=== PATIENT | female | born 1965 | race American Indian/Alaskan Native ===

== ENCOUNTER 2021-04-18 13:21 | Outpatient (CLI) | payer MEDICARE ==
--- NOTE | 2021-04-18 16:51 | XRay Report ---
BILATERAL KNEE 6 VIEW(S) INDICATION / CLINICAL INFORMATION: KNEE PAIN COMPARISON: None available. FINDINGS: BONES / JOINT(S): No acute fracture or subluxation. Severe tricompartmental osteoarthrosis bilaterall y. Suspect is 7 mm intra-articular body within the anterior joint of the right knee, best appreciated on the lateral view. SOFT TISSUES: No significant abnormality. ADDITIONAL FINDINGS: None. Signer Name: Judd Verma MD Signed: 04/18/2021 4:46 PM Workstation Name: [employer]
== END 2021-04-18 13:22 | disposition home or self-care (01) ==
LOC: EDBD 13:21 → XRAY 13:21
PROVIDERS: ATTEND Internal Medicine
DX: M17.0 Bilateral primary osteoarthritis of knee (principal)